=== PATIENT | male | born 1945 | race Native Hawaiian/Other Pacific Islander ===

== ENCOUNTER → 2016-08-17 | Outpatient (CLI) | payer MEDICARE, OTHER | END | disposition home or self-care (01) | LOC: RAD 09:07 | DX: J18.9 Pneumonia, unspecified organism (principal) ==

== ENCOUNTER → 2018-04-11 | Outpatient (CLI) | payer MEDICARE, OTHER ==
[~2018-04-11] MED LIST: COZAAR50 M1 PO; PEPCID40 MG PO; REQUIP XL12 MG PO; VERAPAMIL SR240 M1 PO
--- NOTE | ~2018-04-11 | EKG ---
[place], [place] ELECTROCARDIOGRAM REPORT NAME: NADJA RODNEY UNIT #: [id number] ROOM: DOCTOR: EPIPHANY DRAFT REPORT BIRTHDATE: [birth year] [facility] Test Date: 2018-04-11 Test Time: 08:02:26 Pat Name: NADJA RODNEY Department: Room: Gender: [employer]: : 1945 Requested By: NADJA RODNEY Order Number: [id number] Reading MD: Tay Hui MD Measurements Intervals [place] Rate: 51 P: 14 OK: 177 QRS: -18 QRSD: 92 T: 50 QT: 432 QTc: 398 Interpretive Statements Sinus rhythm Borderline left axis deviation Electronically Signed On 04-12-2018 13:52:47 PST by Tay Hui MD CM:EKGRPT:ELECTROCARDIOGRAM REPORT [id number] NADJA RODNEY MD EPIPHANY DRAFT REPORT NADJA RODNEY MD
[2018-04-11 09:18] LABS: BASO % 0.5 % (0.0-1.0); EOS # 0.1 10*3/uL (0.0-0.4); EOS % 1.5 % (1.0-4.0); HEMATOCRIT 41.8 % (42.0-52.0); HEMOGLOBIN 13.8 g/dl (14.0-18.0); LYMPH % 24.7 % (27.0-41.0); MEAN CELL VOLUME 99.3 fl (80.0-94.0); MEAN CORPUSCULAR HGB 32.8 pg (27.0-31.0); MEAN PLATELET VOLUME 10.2 fl (9.6-12.3); MONO # 0.4 10*3/uL (0.1-1.0); MONO % 8.7 % (3.0-9.0); NEUT # 2.7 10*3/uL (2.3-7.9); NEUT % 64.4 % (47.0-73.0); PLATELET COUNT AUTOMATED 177 10*3/uL (130-400); RED BLOOD COUNT 4.21 10*6/uL (4.50-5.90); RED CELL DISTRI WIDTH 12.5 % (0-14.5); WHITE BLOOD COUNT 4.1 10*3/uL (4.8-10.8)
[2018-04-11 09:37] LABS: ALBUMIN 3.5 gm/dl (3.1-4.5); BUN 12 mg/dl (7-24); CHLORIDE 105 mmol/L (98-107); CHOLESTEROL 189 mg/dL (<200); CREATININE 0.85 mg/dL (0.70-1.30); PHOSPHOROUS 2.7 mg/dL (2.5-4.9); POTASSIUM 3.7 mmol/L (3.5-5.1); SGOT/AST 19 IU/L (3-35); SGPT/ALT 32 U/L (12-78); SODIUM 140 mmol/L (136-145); TOTAL PROTEIN 6.8 gm/dL (6.4-8.2); TRIGLYCERIDES 50 mg/dl (<150); VLDL CHOLESTEROL 10 mg/dL (6-40)
[2018-04-11 09:43] LABS: ALKALINE PHOSPHATASE 68 U/L (45-117); HDL CHOLESTEROL 74 mg/dl (40-60); LDL CHOLESTEROL 105 mg/dL (9-159)
== END | disposition home or self-care (01) ==
LOC: LAB 08:14
PROVIDERS: Internal Medicine Gastroenterology
DX: Z12.5 Encounter for screening for malignant neoplasm of prostate (principal); R07.9 Chest pain, unspecified; E11.9 Type 2 diabetes mellitus without complications; R53.83 Other fatigue

== ENCOUNTER → 2018-05-11 | Outpatient (CLI) | payer MEDICARE, OTHER | END | disposition home or self-care (01) | LOC: RAD 13:48 | DX: J18.9 Pneumonia, unspecified organism (principal) ==

== ENCOUNTER → 2018-11-16 | Day surgery (SDC) | payer MEDICARE, OTHER ==
[2018-11-14 18:29] VITALS: BP 127/72
[~2018-11-16] VITALS: Ht 170.1 cm; Wt 68.0 kg
[2018-11-16 14:33] VITALS: BP 119/75
[2018-11-16 15:10] VITALS: BP 106/48
[2018-11-16 15:25] VITALS: BP 100/50
[2018-11-16 15:40] VITALS: BP 102/48
[2018-11-17 15:08] LABS: ACID FAST SPEC PROCESSING Concentration (.)
[2018-12-27 08:06] LABS: ACID FAST CULTURE Negative (.)
== END | disposition home or self-care (01) ==
LOC: SDC 11-15 09:30
PROVIDERS: Internal Medicine Critical Care Medicine
DX: J98.4 Other disorders of lung (principal); J44.9 Chronic obstructive pulmonary disease, unspecified; J05.10 Acute epiglottitis without obstruction; I10 Essential (primary) hypertension; K44.9 Diaphragmatic hernia without obstruction or gangrene; Z98.890 Other specified postprocedural states; Z79.899 Other long term (current) drug therapy